=== PATIENT | male | born 1950 | race Caucasian/White ===

== ENCOUNTER 2017-01-26 09:36 | Emergency (ER) | payer OTHER ==
[2017-01-26 10:14] VITALS: BP 138/81
--- NOTE | 2017-01-26 12:00 | UC ---
Laceration HPI - HPI Summary HPI Summary: CUT HIS LEFT 2ND AND 3RD FINGERS THIS MORNING AROUND 9AM WHILE USING MOTORIZED HEDGE TRIMMERS. HAS FULL ROM. LAST TETANUS 06/02/2007. - History Of Current Complaint Chief Complaint: UCLaceration Stated Complaint: HAND LACERATION Time Seen by Provider: 01/26/17 11:57 Hx Obtained From: Patient, Family/Director Outpatient Services - Laceration Location: Hand - LEFT Mechanism Of Injury: Sharp Trauma Onset/Duration: Sudden Onset, Lasting Hours, Still Present Severity: Moderate Pain Intensity: 3 Pain Scale Used: 0-10 Numeric Aggravating Factors: Movement Related History: Dominant Hand Right - Allergies/Home Medications Allergies/Adverse Reactions: Allergies Allergy/AdvReac Type Severity Reaction Status Date / Time No Known Allergies Allergy Verified 01/26/17 10:03 Home Medications: Home Medications Amlodipine Besylate [Norvasc 10 mg tab] 10 mg PO BEDTIME 01/26/17 [History Confirmed 01/26/17] Cholecalciferol TAB* [Vitamin D TAB*] 2,000 PO DAILY 01/26/17 [History] Coenzyme R28-Ehbhthl E [Coq10 St-100 100-100 mg-Unit] 1 tab PO DAILY 01/26/17 [ History Confirmed 01/26/17] Hydrochlorothiazide TAB* [Hydrodiuril TAB*] 25 mg PO DAILY 01/26/17 [History Confirmed 01/26/17] Labetalol TAB* [Trandate TAB*] 100 mg PO BID 01/26/17 [History Confirmed ] Multiple Vitamin [Multi Vitamin] 1 tab PO DAILY 01/26/17 [History Confirmed ] [place]-3 Fatty Acids [Fish Oil 500 mg] 1,000 mg PO BID 01/26/17 [History Confirmed 01/26/17] PMH/Surg Hx/FS Hx/Imm Hx Cardiovascular History: Hypertension - Surgical History Surgical History: Yes Surgery Procedure, Year, and Place: TURP-BPH 2007, [place] - Family History Known Family History: Positive: Hypertension - Social History Alcohol Use: Daily Substance Use Type: None Smoking Status (MU): Never Smoked Tobacco Review of Systems Constitutional: Negative Skin: Other - LACERATIONS LEFT HAND Respiratory: Negative Cardiovascular: Negative Gastrointestinal: Negative All Other Systems Reviewed And Are Negative: Yes Physical Exam Triage Information Reviewed: Yes Appearance: Well-Appearing, No Pain Distress, Well-Nourished Vital Signs: Initial Vital Signs Temp 97.9 F 01/26/17 10:08 Pulse 66 01/26/17 10:08 Resp 16 01/26/17 10:08 BP 138/81 01/26/17 10:08 Pulse Ox 97 01/26/17 10:08 Vital Signs Reviewed: Yes Eyes: Positive: Conjunctiva Clear ENT: Positive: Hearing grossly normal Neck: Positive: Supple Respiratory: Positive: No respiratory distress, No accessory muscle use Cardiovascular: Positive: Pulses Normal Abdomen Description: Positive: Soft Musculoskeletal: Positive: No Edema Neurological: Positive: Alert Psychological: Positive: Age Appropriate Behavior Skin: Positive: Other - 3CM LINEAR LACERATION LEFT 3RD FINGER DISTALLY. 1.2CM STELLATE LACERATION LEFT 2ND FINGER AT MCP JOINT. PALMAR SURFACE.. Negative: rashes Laceration Repair - Laceration Repair 1 Description: Linear Laceration Size After Repair: Length (cm) - 3CM, Width (mm) - 0MM, Depth (mm) - 3MM Modified For Repair: No Type Injection: Local Anesthesia Used: 2.0% Lido Irrigation With Pressure Irrigation Device: Yes Closure Material: Sutures - 7 SIMPLE INTERRUPTED Closure Method: Single Layer Suture Of: Skin Suture Type: Other - 5-0 SURGIPRO 2 Description: Irregular Laceration Size After Repair: Length (cm) - 1.2CM, Width (mm) - 0MM, Depth (mm) - 2MM Modified For Repair: No Type Injection: Local Anesthesia Used: 2.0% Lido Irrigation With Pressure Irrigation Device: Yes Closure Material: Sutures - 5 SIMPLE INTERRUPTED Suture Of: Skin Suture Type: Other - 5-0 SURGIPRO Diagnostics - Radiology LEFT HAND XRAY Xray Interpretation: No Acute Changes Radiology Interpretation Completed By: Radiologist Laceration Course/Dx - Differential Dx - Laceration/Wound Provider Diagnoses: 1. LACERATION REPAIR - LEFT 3RD FINGER, LEFT 2ND FINGER. 2. TDAP BOOSTER Discharge - Discharge Plan Condition: Stable Disposition: HOME Patient Education Materials: Finger Laceration (ED) Referrals: Jax Sauceda MD [Primary Care Provider] - If Needed Additional Instructions: KEEP DRESSINGS IN PLACE AND DRY FOR THE FIRST 24 HRS. THEN YOU MAY REMOVE THE DRESSING AND GENTLY CLEANSE WITH SOAP AND WATER. PAT DRY AND RE-BANDAGE. APPLY THIN LAYER ANTIBIOTIC OINTMENT UNDER BANDAGE FOR FIRST 3-4 DAYS ONLY. CHANGE BANDAGE DAILY AND NEEDED IF IT BECOMES SOILED OR WET. SEEK FOLLOW-UP IF YOU DEVELOP SPREADING REDNESS OF THE SKIN, PURULENT DRAINAGE, FEVER, INCREASED PAIN OR ANY OTHER CONCERNING SYMPTOMS. RETURN FOR SUTURE REMOVAL IN 10 DAYS TETANUS IMMUNIZATION GIVEN (TDAP): You have been given an immunization against tetanus. Please record this in your records. In general, a booster is needed only once every 10 years. The tetanus shot protects against tetanus or "lockjaw," which is a complication of certain wound infections (the tetanus shot cannot protect against the actual infection). The immunization site may become warm and red due to local reaction. If this occurs, apply warm compresses and take aspirin or ibuprofen to reduce inflammation and discomfort. Return for evaluation if the reaction becomes severe.
[2017-01-26] MEDS ORDERED: Lidocaine 2% PF * 5 ML VIAL INJ ONE (12:11)
--- NOTE | 2017-01-26 12:35 | RAD ---
HISTORY: Trauma, lacerations to the left hand COMPARISONS: None VIEWS: 4, Frontal, lateral, and oblique views of the left hand FINDINGS: BONE DENSITY: Normal. BONES: There is no displaced fracture. 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 SOFT TISSUES: Unremarkable. OTHER FINDINGS: None. IMPRESSION: NO ACUTE OSSEOUS INJURY. IF SYMPTOMS PERSIST, RECOMMEND REPEAT IMAGING.
[2017-01-26] MEDS ORDERED: Tetan/Diph/Pertus SYR(Tdap)* 0.5 ML SYR(BOOSTRIX) use SYR IM ONE (13:06)
== END 2017-01-26 14:30 | disposition home or self-care (01) ==
LOC: UCEAST 09:36
DX: S61.211A Laceration without foreign body of left index finger without damage to nail, initial encounter (principal); S61.213A Laceration without foreign body of left middle finger without damage to nail, initial encounter; W45.8XXA Other foreign body or object entering through skin, initial encounter; W29.3XXA Contact with powered garden and outdoor hand tools and machinery, initial encounter; Y93.9 Activity, unspecified; Y92.9 Unspecified place or not applicable; Y99.9 Unspecified external cause status; Z23 Encounter for immunization; I10 Essential (primary) hypertension
CPT/HCPCS: 12002; 90471; 90715; 99211; G0463

== ENCOUNTER 2017-02-05 11:15 | Emergency (ER) | payer OTHER ==
[2017-02-05 12:36] VITALS: BP 152/81
--- NOTE | 2017-02-05 13:08 | UC ---
HPI Wound/Suture Re-check - HPI Summary HPI Summary: Cut L 2nd and 3rd fingers with electric hedge trimmers on 01/26. Here for suture removal. Denies pain, drainage, or signs of problem. - History Of Current Complaint Chief Complaint: UCLaceration Stated Complaint: SUTURE REMOVAL Time Seen by Provider: 02/05/17 12:43 Hx Obtained From: Patient Onset/Duration: Sudden Onset Severity: Moderate Procedure Type: sutures to L hand - Allergies/Home Medications Allergies/Adverse Reactions: Allergies Allergy/AdvReac Type Severity Reaction Status Date / Time No Known Allergies Allergy Verified 02/05/17 12:36 Home Medications: Home Medications Misc Natural Products [Curcumax Pro] 1 tab PO DAILY 02/05/17 [History Confirmed 02/05/17] PMH/Surg Hx/FS Hx/Imm Hx Previously Healthy: Yes Cardiovascular History: Hypertension - Surgical History Surgical History: Yes Surgery Procedure, Year, and Place: TURP-BPH 2007, [place] - Family History Known Family History: Positive: Hypertension - Social History Lives: With Family Alcohol Use: Daily Substance Use Type: None Smoking Status (MU): Never Smoked Tobacco Review of Systems Constitutional: Negative Skin: Other - sutures to L hand Eyes: Negative ENT: Negative Respiratory: Negative Cardiovascular: Negative Gastrointestinal: Negative Genitourinary: Negative Motor: Negative Neurovascular: Negative Musculoskeletal: Negative Neurological: Negative Psychological: Negative All Other Systems Reviewed And Are Negative: Yes Physical Exam Triage Information Reviewed: Yes Appearance: Well-Appearing, No Pain Distress, Well-Nourished Vital Signs: Initial Vital Signs Temp 99.7 F 02/05/17 12:34 Pulse 70 02/05/17 12:34 Resp 16 02/05/17 12:34 BP 152/81 02/05/17 12:34 Pulse Ox 98 02/05/17 12:34 Vital Signs Reviewed: Yes Eye Exam: Normal Eyes: Positive: Conjunctiva Clear ENT Exam: Normal ENT: Positive: Normal ENT inspection, Hearing grossly normal, Pharynx normal, TMs normal Dental Exam: Normal Neck exam: Normal Neck: Positive: Supple, Nontender, No Lymphadenopathy Respiratory Exam: Normal Respiratory: Positive: Chest non-tender, Lungs clear, Normal breath sounds, No respiratory distress, No accessory muscle use Cardiovascular Exam: Normal Cardiovascular: Positive: RRR, No Murmur Musculoskeletal Exam: Normal Musculoskeletal: Positive: Strength Intact, ROM Intact, No Edema Neurological Exam: Normal Neurological: Positive: Alert Psychological Exam: Normal Skin Exam: Other - #12 sutures removed from L 2nd and 3rd fingers. Wounds dry, intact, no erythema. Pt jai well. Course/Dx - Differential Dx - Laceration/Wound Provider Diagnoses: Sutures removed from 2 lacerations on L hand; healing wounds. Discharge - Discharge Plan Condition: Stable Disposition: HOME Patient Education Materials: Stitches Removal (ED) Referrals: Jax Sauceda MD [Primary Care Provider] - If Needed Additional Instructions: Come back here if you suspect a problem.
== END 2017-02-05 13:05 | disposition home or self-care (01) ==
LOC: UCEAST 11:15
DX: Z48.02 Encounter for removal of sutures (principal); I10 Essential (primary) hypertension
CPT/HCPCS: 99211; G0463

== ENCOUNTER 2018-01-25 08:00 | Day surgery (SDC) | payer OTHER ==
[~2018-01-25 08:00] MED LIST: Acetaminophen TAB* 325 MG PO PRN; Buffered Lidocaine 0.9% SYRIN* 5 ML/SYR SYRINGE INTRADERM ONE; Midazolam* 1 MG/ML 2 ML VIAL (2 MG) ONE
[2018-01-25] MEDS ORDERED: Midazolam* 1 MG/ML 2 ML VIAL (2 MG) ONE (10:20)
[2018-01-25 10:44] VITALS: BP 131/79
[2018-01-25] MEDS ORDERED: Cyclopentolate 1% OPTH.SOL* 2 ML BTL ONE (12:29)
[2018-01-25] MEDS ORDERED: Proparacaine 0.5% OPHTH.SOL* 15 ML BTL ONE (12:29)
[2018-01-25] MEDS ORDERED: Phenylephrine 2.5% OPTH.SOL* 2 ML BTL ONE (12:29)
[2018-01-25] MEDS ORDERED: Lidocaine 2% EPI 1:200000 MPF*10-20 ML VIAL ONE (12:29)
[2018-01-25] MEDS ORDERED: Ketorolac 0.5% OPHTH (NF) 0.5 % 5 ML BTL ONE (12:29)
[2018-01-25] MEDS ORDERED: Neomycin/Polymy/Dex OPTH.SUSP* MAXITROL 0.1% 5 ML ONE (12:29)
[2018-01-25] MEDS ORDERED: Povidone Iodine 5% OPTH* 30 ML BTL ONE (12:29)
[2018-01-25] MEDS ORDERED: acetaZOLAMIDE TAB* 250 MG ONE (12:29)
[2018-01-25] MEDS ORDERED: Lidocaine 1%* 5 ML VIAL ONE (12:29)
--- NOTE | 2018-01-26 08:01 | OP ---
DATE OF OPERATION: 01/25/18 [facility] DATE OF : 46 SURGEON: Scot Gongora M.D. PREOPERATIVE DIAGNOSIS: Cataract, right eye. POSTOPERATIVE DIAGNOSIS: Cataract, right eye. OPERATIVE PROCEDURE: Extracapsular cataract extraction with intraocular lens implant right eye. DESCRIPTION OF PROCEDURE: The patient was brought to the operating room after being given 1/2% Alcaine with epinephrine drops in the preoperative area. The eye was prepped and draped in the usual sterile fashion. Sterile drape and eyelid speculum were placed. Again, topical 1/2% Alcaine with epinephrine was given. A paracentesis incision was made at the 9 o'clock position with the No.75 blade. Clear cornea incision 2.2 x 2.2-mm was created at the 12 o'clock position starting at the anterior limbus using the 2.2-mm keratome. The anterior chamber was irrigated with 0.4 mL of 1% non-preservative intracameral lidocaine and filled with DisCoVisc. A capsulorrhexis was completed using the cystotome and the Utrata forceps. Hydrodissection was performed with balanced salt solution. The lens nucleus was removed with the Phacoemulsification handpiece without incident. Cortex was removed with the irrigation-aspiration handpiece. The capsular bag was re-inflated using DisCoVisc and an [id number] implant was inserted with the shooter and oriented to the 101-degree axis. Horizontal reference larson with the patient in postoperative area in a seated position. The irrigation-aspiration handpiece was used to remove all residual DisCoVisc. The eye was refilled with balanced salt solution and the wound checked and found to be watertight. Topical Maxitrol drops were given. [id number]/[facility] #: [id number] [facility]
== END 2018-01-25 10:58 | disposition home or self-care (01) ==
LOC: OREAST 08:00
PROVIDERS: ATTEND Specialist
DX: Z01.818 Encounter for other preprocedural examination (principal); H25.813 Combined forms of age-related cataract, bilateral; H40.9 Unspecified glaucoma; I10 Essential (primary) hypertension; N40.1 Benign prostatic hyperplasia with lower urinary tract symptoms; R35.0 Frequency of micturition; Z83.511 Family history of glaucoma; Z86.010 Personal history of colon polyps
CPT/HCPCS: A9270-GY; J2250; V2787

== ENCOUNTER 2018-02-01 10:34 | Day surgery (SDC) | payer OTHER ==
[~2018-02-01 10:34] MED LIST changes: -Acetaminophen TAB* 325 MG PO PRN; +Cyclopentolate 1% OPTH.SOL* 2 ML BTL ONE; +Ketorolac 0.5% OPHTH (NF) 0.5 % 5 ML BTL ONE; +Lidocaine 1%* 5 ML VIAL ONE; +Lidocaine 2% EPI 1:200000 MPF*10-20 ML VIAL ONE; -Midazolam* 1 MG/ML 2 ML VIAL (2 MG) ONE; +Neomycin/Polymy/Dex OPTH.SUSP* MAXITROL 0.1% 5 ML ONE; +Phenylephrine 2.5% OPTH.SOL* 2 ML BTL ONE; +Povidone Iodine 5% OPTH* 30 ML BTL ONE; +Proparacaine 0.5% OPHTH.SOL* 15 ML BTL ONE; +acetaZOLAMIDE TAB* 250 MG ONE
[2018-02-01] MEDS ORDERED: Midazolam* 1 MG/ML 2 ML VIAL (2 MG) ONE ×2 (13:11→13:14)
[2018-02-01 14:00] VITALS: BP 118/82
--- NOTE | 2018-02-01 15:13 | OP ---
DATE OF OPERATION: 02/01/2018 - [facility] DATE OF : 1950. SURGEON: Scot Gongora M.D. PREOPERATIVE DIAGNOSIS: Cataract left eye. POSTOPERATIVE DIAGNOSIS: Cataract left eye. OPERATIVE PROCEDURE: Extracapsular cataract extraction with intraocular lens implant left eye. DESCRIPTION OF PROCEDURE: The patient was brought to the operating room after being given 1/2% Alcaine with epinephrine drops in the preoperative area. The eye was prepped and draped in the usual sterile fashion. Sterile drape and eyelid speculum were placed. Again, topical 1/2% Alcaine with epinephrine was given. A paracentesis incision was made at the 3 o'clock position with the No.75 blade. Clear cornea incision 2.2 x 2.2-mm was created at the 6 o'clock position starting at the anterior limbus using the 2.2-mm keratome. The anterior chamber was irrigated with 0.4 mL of 1% non-preservative intracameral lidocaine and filled with DisCoVisc. A capsulorrhexis was completed using the cystotome and the Utrata forceps. Hydrodissection was performed with balanced salt solution. The lens nucleus was removed with the Phacoemulsification handpiece without incident. Cortex was removed with the irrigation-aspiration handpiece. The capsular bag was re-inflated using DisCoVisc and an [id number] implant was inserted with the shooter, oriented to the 91 degree meridian. Horizontal reference larson were made with the patient in the preoperative area. The irrigation-aspiration handpiece was used to remove all residual DisCoVisc. The eye was refilled with balanced salt solution and the wound checked and found to be watertight. Topical Maxitrol drops were given. [id number]/[facility] #: [id number] [facility]
== END 2018-02-01 13:54 | disposition home or self-care (01) ==
LOC: OREAST 10:34
PROVIDERS: ATTEND Specialist
DX: H25.812 Combined forms of age-related cataract, left eye (principal); Z83.511 Family history of glaucoma; I10 Essential (primary) hypertension
CPT/HCPCS: A9270-GY; J2250; V2787